=== PATIENT | male | born 1965 | race Caucasian/White ===

== ENCOUNTER 2018-03-26 17:14 | Inpatient (IN) | payer OTHER ==
[~2018-03-26] VITALS: Ht 180.3 cm; Wt 75.8 kg
[2018-03-26 17:57] LABS: MEAN CORPUSCULAR HEMOGLOBIN 36.1 pg (27.5-34.5); MEAN CORPUSCULAR VOLUME 106.4 fL (81-97); MEAN PLATELET VOLUME 9.4 fL (7.4-10.4); PLATELET COUNT 220 x10^3/uL (130-400); RED BLOOD COUNT 3.89 x10^6/uL (4.38-5.82); RED CELL DISTRIBUTION WIDTH 13.4 % (9.4-14.8)
[2018-03-26] MEDS ORDERED: SODIUM CHLORIDE 0.9% 1,000ML IVBOLUS ONE ×2 (18:00→21:00)
[2018-03-26] MEDS ORDERED: ONDANSETRON 2MG/ML, 2ML IVPush ONE (18:00)
[2018-03-26] MEDS ORDERED: PANTOPRAZOLE 40 MG IV IVPush ONE ×2 (18:00)
[2018-03-26 18:04] LABS: INTERNATIONAL NORMALIZED RATIO 1.1 (0.93-1.1); PROTHROMBIN TIME 11.4 Seconds (9.6-11.5)
[2018-03-26 18:07] LABS: ALANINE AMINOTRANSFERASE 99 U/L (12-78); ALBUMIN 3.2 g/dL (3.4-5.0); ANION GAP 9 mmol/L (5-15); CALCIUM 8.7 mg/dL (8.5-10.1); CHLORIDE 96 mmol/L (98-107); CREATININE 0.62 mg/dL (0.7-1.3)
[2018-03-26 18:10] LABS: ALKALINE PHOSPHATASE 291 U/L (45-117); BILIRUBIN,TOTAL 2.1 mg/dL (0.2-1.0); TOTAL PROTEIN 8.1 g/dL (6.4-8.2)
[2018-03-26 18:21] LABS: BASOPHILS # (AUTO) 0.09 x10^3/uL (0-0.1); BASOPHILS % (AUTO) 1 % (0-1); EOSINOPHILS # (AUTO) 0.05 x10^3/uL (0-0.4); EOSINOPHILS % (AUTO) 0 % (1-7); LYMPHOCYTES % (AUTO) 19 % (22-44); MD SCAN; MONOCYTES # (AUTO) 1.66 x10^3/uL (0.2-0.8); MONOCYTES % (AUTO) 14 % (2-9); NEUTROPHILS # (AUTO) 7.74 x10^3/uL (1.8-6.8); NEUTROPHILS % (AUTO) 65 % (42-75)
[2018-03-26] MEDS ORDERED: OMEP-110 PO (18:30)
[2018-03-26] MEDS ORDERED: PANTOPRAZOLE 40 MG IV ONE (18:36)
[2018-03-26] MEDS ORDERED: LORazepam 2 MG/ML, 1ML IV PRN ×5 (21:00)
[2018-03-26] MEDS ORDERED: LORazepam 2 MG/ML, 1ML IVPush PRN (21:00)
[2018-03-26] MEDS ORDERED: ONDANSETRON 2MG/ML, 2ML IVPush PRN (21:00)
[2018-03-26] MEDS ORDERED: ONDANSETRON ODT 4 MG ONE (21:35)
[2018-03-26] MEDS ORDERED: DICY10CA3 PO (21:47)
[2018-03-26] MEDS ORDERED: BENZ-17 PO (21:47)
[2018-03-26] MEDS ORDERED: LAMO100T63 PO (21:47)
[2018-03-26] MEDS ORDERED: DOCU100C33 PO (21:47)
[2018-03-26] MEDS ORDERED: LORA-445 PO (21:47)
[2018-03-26] MEDS ORDERED: LEVO75TA5 PO (21:47)
[2018-03-26] MEDS ORDERED: ALBU2.5V NEB (21:47)
[2018-03-26] MEDS ORDERED: DIPH25CA61 PO (21:47)
[2018-03-26] MEDS ORDERED: CLON1TAB23 PO ×2 (21:47)
[2018-03-26] MEDS ORDERED: BUDE10.2 INH (21:47)
[2018-03-26] MEDS ORDERED: DIVA125T3 PO (21:47)
[2018-03-26] MEDS ORDERED: FLUO40CA2 PO (21:47)
[2018-03-26] MEDS ORDERED: PROPOFOL 100 ML IV ONE (22:29)
[2018-03-26] MEDS ORDERED: ONDANSETRON ODT 4 MG PO PRN (22:30)
[2018-03-26] MEDS ORDERED: PANTOPRAZOLE 80 MG in SODIUM CHLORIDE 0.9% 50 ML IV ONE (22:30)
[2018-03-26] MEDS ORDERED: OCTREOTIDE 500 MCG in SODIUM CHLORIDE 0.9% 249 ML IV SCH (22:30)
[2018-03-26 22:45] VITALS: BP 143/88
[2018-03-26] MEDS: SODIUM CHLORIDE 0.9% 1,000 ML IV SCH (22:56)
[2018-03-26] MEDS: POTASSIUM CHLORIDE 20 MEQ, MAGNESIUM SULFATE 2 GM, THIAMINE 100 MG, MVI ADULT 10 ML, FO... IV SCH (22:56)
[2018-03-26] MEDS: CEFTRIAXONE PMX 1GM/50ML 50 ML IV SCH (22:57)
[2018-03-26] MEDS: OCTREOTIDE 500 MCG in SODIUM CHLORIDE 0.9% 249 ML IV SCH (22:58)
[2018-03-26 23:25] LABS: % IRON SATURATION 93 % (20-55); IRON LEVEL 223 mcg/dL (65-175); TOTAL IRON BINDING CAPACITY 240 mcg/dL (250-450)
[2018-03-27] MEDS ORDERED: PROCHLORPERAZINE 5 MG/ML, 2ML IVPush PRN
[2018-03-27] MEDS: PANTOPRAZOLE 80 MG in SODIUM CHLORIDE 0.9% 100 ML IV SCH ×3 (00:08→18:30)
[2018-03-27 04:00] VITALS: BP 125/70
[2018-03-27] MEDS: SODIUM CHLORIDE 0.9% 1,000 ML IV SCH ×3 (04:10→15:50)
[2018-03-27 04:39] LABS: BASOPHILS # (AUTO) 0.07 x10^3/uL (0-0.1); BASOPHILS % (AUTO) 1 % (0-1); EOSINOPHILS # (AUTO) 0.02 x10^3/uL (0-0.4); EOSINOPHILS % (AUTO) 0 % (1-7); LYMPHOCYTES # (AUTO) 1.98 x10^3/uL (1-3.4); LYMPHOCYTES % (AUTO) 22 % (22-44); MD NO; MEAN CORPUSCULAR HEMOGLOBIN 36.6 pg (27.5-34.5); MEAN CORPUSCULAR HGB CONC 34.3 g/dL (33.2-36.2); MEAN CORPUSCULAR VOLUME 106.5 fL (81-97); MEAN PLATELET VOLUME 10.1 fL (7.4-10.4); MONOCYTES # (AUTO) 1.23 x10^3/uL (0.2-0.8); MONOCYTES % (AUTO) 13 % (2-9); NEUTROPHILS # (AUTO) 5.89 x10^3/uL (1.8-6.8); NEUTROPHILS % (AUTO) 64 % (42-75); PLATELET COUNT 171 x10^3/uL (130-400); RED BLOOD COUNT 2.84 x10^6/uL (4.38-5.82); RED CELL DISTRIBUTION WIDTH 13.3 % (9.4-14.8)
[2018-03-27 04:48] LABS: CHLORIDE 104 mmol/L (98-107)
[2018-03-27 04:56] LABS: ALANINE AMINOTRANSFERASE 63 U/L (12-78); ALBUMIN 2.4 g/dL (3.4-5.0); ALKALINE PHOSPHATASE 190 U/L (45-117); ANION GAP 8 mmol/L (5-15); BILIRUBIN,TOTAL 1.9 mg/dL (0.2-1.0); CALCIUM 7.5 mg/dL (8.5-10.1); CREATININE 0.66 mg/dL (0.7-1.3); TOTAL PROTEIN 5.9 g/dL (6.4-8.2)
[2018-03-27] MEDS ORDERED: EPINEPHRINE SYRINGE 0.1 MG/ML, 10ML ONE (07:19)
[2018-03-27] MEDS: OCTREOTIDE 500 MCG in SODIUM CHLORIDE 0.9% 249 ML IV SCH (08:47)
[2018-03-27] MEDS ORDERED: PANTOPRAZOLE 40 MG IV IVPush SCH (09:00)
[2018-03-27] MEDS: SUCRALFATE 1 GM TABLET PO SCH ×2 (15:59→20:10)
[2018-03-27] MEDS: PANTOPROZOLE 40MG TABLET PO SCH (20:09)
[2018-03-27] MEDS: CHLORDIAZEPOXIDE 25 MG CAPSULE PO SCH (20:10)
[2018-03-27] MEDS: POTASSIUM CHLORIDE 20 MEQ, MAGNESIUM SULFATE 2 GM, THIAMINE 100 MG, MVI ADULT 10 ML, FO... IV SCH (20:32)
[2018-03-27] MEDS: CEFTRIAXONE PMX 1GM/50ML 50 ML IV SCH (20:32)
[2018-03-28] MEDS: SODIUM CHLORIDE 0.9% 1,000 ML IV SCH (01:31)
[2018-03-28 04:00] VITALS: BP 115/88
[2018-03-28] MEDS: CHLORDIAZEPOXIDE 25 MG CAPSULE PO SCH ×3 (04:26→21:09)
[2018-03-28 04:43] LABS: BASOPHILS # (AUTO) 0.08 x10^3/uL (0-0.1); BASOPHILS % (AUTO) 1 % (0-1); EOSINOPHILS # (AUTO) 0.17 x10^3/uL (0-0.4); EOSINOPHILS % (AUTO) 2 % (1-7); LYMPHOCYTES # (AUTO) 1.87 x10^3/uL (1-3.4); LYMPHOCYTES % (AUTO) 20 % (22-44); MD NO; MEAN CORPUSCULAR HEMOGLOBIN 36.3 pg (27.5-34.5); MEAN CORPUSCULAR HGB CONC 33.9 g/dL (33.2-36.2); MEAN CORPUSCULAR VOLUME 107.1 fL (81-97); MEAN PLATELET VOLUME 9.6 fL (7.4-10.4); MONOCYTES # (AUTO) 0.94 x10^3/uL (0.2-0.8); MONOCYTES % (AUTO) 10 % (2-9); NEUTROPHILS # (AUTO) 6.13 x10^3/uL (1.8-6.8); NEUTROPHILS % (AUTO) 67 % (42-75); PLATELET COUNT 160 x10^3/uL (130-400); RED BLOOD COUNT 2.79 x10^6/uL (4.38-5.82); RED CELL DISTRIBUTION WIDTH 13.2 % (9.4-14.8)
[2018-03-28 04:50] LABS: CHLORIDE 107 mmol/L (98-107)
[2018-03-28 04:58] LABS: ALANINE AMINOTRANSFERASE 71 U/L (12-78); ALBUMIN 2.5 g/dL (3.4-5.0); ALKALINE PHOSPHATASE 167 U/L (45-117); ANION GAP 7 mmol/L (5-15); BILIRUBIN,TOTAL 2.3 mg/dL (0.2-1.0); CALCIUM 7.6 mg/dL (8.5-10.1); CREATININE 0.51 mg/dL (0.7-1.3); TOTAL PROTEIN 5.9 g/dL (6.4-8.2)
[2018-03-28] MEDS: PANTOPROZOLE 40MG TABLET PO SCH ×2 (08:55→21:09)
[2018-03-28] MEDS: SUCRALFATE 1 GM TABLET PO SCH ×3 (09:07→21:45)
[2018-03-28] MEDS: PROPRANOLOL 10 MG TABLET PO SCH ×3 (10:03→21:45)
[2018-03-28 13:15] VITALS: BP 104/80
[2018-03-28] MEDS ORDERED: SUCRALFATE 1 GM/10 ML UDC ONE (15:45)
[2018-03-28 18:43] VITALS: BP 103/67
[2018-03-28] MEDS: CEFTRIAXONE PMX 1GM/50ML 50 ML IV SCH (23:21)
[2018-03-28] MEDS: POTASSIUM CHLORIDE 20 MEQ, MAGNESIUM SULFATE 2 GM, THIAMINE 100 MG, MVI ADULT 10 ML, FO... IV SCH (23:32)
[2018-03-29 00:50] VITALS: BP 103/70
[2018-03-29] MEDS: CHLORDIAZEPOXIDE 25 MG CAPSULE PO SCH ×3 (04:35→20:46)
[2018-03-29] MEDS: PROPRANOLOL 10 MG TABLET PO SCH ×3 (05:29→22:19)
[2018-03-29 05:48] LABS: BASOPHILS # (AUTO) 0.09 x10^3/uL (0-0.1); BASOPHILS % (AUTO) 1 % (0-1); EOSINOPHILS # (AUTO) 0.21 x10^3/uL (0-0.4); EOSINOPHILS % (AUTO) 3 % (1-7); LYMPHOCYTES # (AUTO) 2.03 x10^3/uL (1-3.4); LYMPHOCYTES % (AUTO) 27 % (22-44); MD NO; MEAN CORPUSCULAR HEMOGLOBIN 36.2 pg (27.5-34.5); MEAN CORPUSCULAR HGB CONC 33.5 g/dL (33.2-36.2); MEAN PLATELET VOLUME 9.9 fL (7.4-10.4); MONOCYTES # (AUTO) 0.78 x10^3/uL (0.2-0.8); MONOCYTES % (AUTO) 10 % (2-9); NEUTROPHILS # (AUTO) 4.45 x10^3/uL (1.8-6.8); NEUTROPHILS % (AUTO) 59 % (42-75); PLATELET COUNT 170 x10^3/uL (130-400); RED BLOOD COUNT 2.65 x10^6/uL (4.38-5.82); RED CELL DISTRIBUTION WIDTH 13.4 % (9.4-14.8)
[2018-03-29 05:54] LABS: CHLORIDE 110 mmol/L (98-107)
[2018-03-29 06:03] LABS: ALANINE AMINOTRANSFERASE 74 U/L (12-78); ALBUMIN 2.3 g/dL (3.4-5.0); ALKALINE PHOSPHATASE 193 U/L (45-117); ANION GAP 7 mmol/L (5-15); BILIRUBIN,TOTAL 2.3 mg/dL (0.2-1.0); CALCIUM 7.7 mg/dL (8.5-10.1); CREATININE 0.61 mg/dL (0.7-1.3); TOTAL PROTEIN 5.8 g/dL (6.4-8.2)
[2018-03-29 08:15] VITALS: BP 102/68
[2018-03-29] MEDS ORDERED: SUCRALFATE 1 GM/10 ML UDC ONE ×2 (09:01→16:13)
[2018-03-29] MEDS: PANTOPROZOLE 40MG TABLET PO SCH ×2 (09:03→20:46)
[2018-03-29] MEDS: SUCRALFATE 1 GM TABLET PO SCH ×3 (09:03→20:46)
[2018-03-29 15:25] VITALS: BP 99/67
[2018-03-29 19:04] VITALS: BP 108/62
[2018-03-29] MEDS: CEFTRIAXONE PMX 1GM/50ML 50 ML IV SCH (22:19)
[2018-03-30 01:22] VITALS: BP 107/72
[2018-03-30] MEDS: CHLORDIAZEPOXIDE 25 MG CAPSULE PO SCH ×2 (04:19→12:01)
[2018-03-30 05:22] LABS: BASOPHILS % (AUTO) 1 % (0-1); EOSINOPHILS # (AUTO) 0.22 x10^3/uL (0-0.4); EOSINOPHILS % (AUTO) 3 % (1-7); LYMPHOCYTES % (AUTO) 25 % (22-44); MD NO; MEAN CORPUSCULAR HEMOGLOBIN 36.5 pg (27.5-34.5); MEAN CORPUSCULAR HGB CONC 33.8 g/dL (33.2-36.2); MEAN PLATELET VOLUME 9.8 fL (7.4-10.4); MONOCYTES # (AUTO) 1.15 x10^3/uL (0.2-0.8); MONOCYTES % (AUTO) 13 % (2-9); NEUTROPHILS # (AUTO) 5.15 x10^3/uL (1.8-6.8); NEUTROPHILS % (AUTO) 59 % (42-75); PLATELET COUNT 188 x10^3/uL (130-400); RED BLOOD COUNT 2.83 x10^6/uL (4.38-5.82); RED CELL DISTRIBUTION WIDTH 13.5 % (9.4-14.8)
[2018-03-30 05:26] LABS: INTERNATIONAL NORMALIZED RATIO 1.13 (0.93-1.1); PROTHROMBIN TIME 11.7 Seconds (9.6-11.5)
[2018-03-30 05:32] LABS: ALBUMIN 2.3 g/dL (3.4-5.0); ANION GAP 7 mmol/L (5-15); CALCIUM 7.6 mg/dL (8.5-10.1); CHLORIDE 110 mmol/L (98-107)
[2018-03-30 05:35] LABS: ALANINE AMINOTRANSFERASE 72 U/L (12-78); ALKALINE PHOSPHATASE 212 U/L (45-117); BILIRUBIN,TOTAL 2.6 mg/dL (0.2-1.0); CREATININE 0.53 mg/dL (0.7-1.3); TOTAL PROTEIN 5.9 g/dL (6.4-8.2)
[2018-03-30] MEDS: PROPRANOLOL 10 MG TABLET PO SCH (06:19)
[2018-03-30 07:45] VITALS: BP 94/63
[2018-03-30] MEDS ORDERED: SUCRALFATE 1 GM/10 ML UDC ONE (08:26)
[2018-03-30] MEDS: PANTOPROZOLE 40MG TABLET PO SCH (08:29)
[2018-03-30] MEDS: SUCRALFATE 1 GM TABLET PO SCH (08:29)
[2018-03-30] MEDS: POTASSIUM CHLORIDE 10 MEQ TABLET.ER PO SCH ×2 (10:40→11:56)
[2018-03-30] MEDS ORDERED: LORA-446 PO (12:30)
[2018-03-30] MEDS ORDERED: SUCR1TAB33 PO (12:32)
[2018-03-30 12:36] VITALS: BP 96/60
== END 2018-03-30 13:20 | disposition home or self-care (01) | DRG 368 ==
LOC: ED 18:07 → EDIP 19:30 → CCU 22:01 → 4NOR 03-28 11:11
PROVIDERS: ADMIT Hospitalist; ATTEND Hospitalist
PROC: 0DJ08ZZ Inspection of Upper Intestinal Tract, Via Natural or Artificial Opening Endoscopic (ICD-10-PCS; principal; 2018-03-26 22:00)
DX: K22.6 Gastro-esophageal laceration-hemorrhage syndrome (principal); E43 Unspecified severe protein-calorie malnutrition; I95.9 Hypotension, unspecified; K70.10 Alcoholic hepatitis without ascites; E87.1 Hypo-osmolality and hyponatremia; K76.0 Fatty (change of) liver, not elsewhere classified; D50.0 Iron deficiency anemia secondary to blood loss (chronic); F10.20 Alcohol dependence, uncomplicated; E87.6 Hypokalemia; F12.90 Cannabis use, unspecified, uncomplicated; F17.200 Nicotine dependence, unspecified, uncomplicated; K21.9 Gastro-esophageal reflux disease without esophagitis; Z83.49 Family history of other endocrine, nutritional and metabolic diseases; Z68.23 Body mass index [BMI] 23.0-23.9, adult; Z79.899 Other long term (current) drug therapy; Z79.1 Long term (current) use of non-steroidal anti-inflammatories (NSAID)
CPT/HCPCS: 36415; 80053; 82105; 83540; 83550; 83690; 83735; 84100; 85014; 85018; 85025; 85610; 86704; 86706; 86708; 86803; 86850; 86900; 87081; 87340; 93976; 96361; 96374; 96375; 99152; 99153; J0696; J2354; J2405; J3411; J3475; J3480; J7042; C9113; J0780; J2060; J7030; J7050